=== PATIENT | female | born 1965 | race Caucasian/White ===

== ENCOUNTER 2019-10-26 13:58 | Observation (INO) | payer OTHER, SELFPAY ==
[2019-10-26] VITALS (8 sets, daily range): BP systolic 111–147; BP diastolic 46–71; PULSE 62–83; RESP 16–20; TEMP 36.4–37.4; O2SAT 97–99; BMI 31.8
--- NOTE | ~2019-10-26 | XR_ITS ---
EXAMINATION: XR chest 2V DATE: 10/26/2019 15:26 INDICATION: Chest pain. Cough. TECHNIQUE: Frontal and lateral views of the chest were obtained. COMPARISON: Chest 2 views 06/20/2017 FINDINGS: The chest demonstrates clear lungs without pneumonia, pleural effusion, or pneumothorax. Th e heart size is normal. There are prominent paracardial fat pads. There are changes of anterior fusio n procedure in cervical spine. IMPRESSION: 1. No acute cardiopulmonary disease. Reviewed, dictated and finalized at location A. ISION ASSEMBLER BENCH
--- NOTE | 2019-10-26 14:07 | ECG_ITS ---
Measurements Intervals [place] Rate: 71 P: 58 CO: 236 QRS: 12 QRSD: 92 T: 67 QT: 387 QTc: 423 Interpretive Statements SINUS RHYTHM WITH FIRST DEGREE AV BLOCK POSSIBLE LEFT ATRIAL ENLARGEMENT LOW QRS VOLTAGE IN PRECORDIAL LEADS BORDERLINE ST-T WAVE ABNORMALITY- LATERAL LEADS BASELINE WANDER- I, III, AVL, AVF ABNORMAL ECG Electronically Signed On 10-26-2019 14:47:00 LOADING MACHINE OPERATOR HELPER by Ronny Lou D.O.
[2019-10-26 14:45] LABS: Basophils Percent Auto 0.3 % (0.2-1.2); Eosinophils Absolute Auto 0.1 K/mm3 (0-0.3); Eosinophils Percent Auto 1.2 % (0-4.4); Hematocrit 49.2 % (37.0-47.0); Hemoglobin 15.9 g/dL (12.0-15.0); Immature Granulocyte Absolute 0.03 K/mm3 (0.00-0.031); Immature Granulocyte Percent A 0.3 % (0-0.5); Lymphocytes Absolute Auto 2.65 K/mm3 (0.9-3.2); Lymphocytes Percent Auto 28.3 % (18.3-44.2); Mean Corpuscular HGB Conc 32.3 g/dl (32-36); Mean Corpuscular Hemoglobin 29.6 pg (26-34); Mean Corpuscular Volume 91.4 fl (80-100); Mean Platelet Volume 11.4 fl (7.4-10.4); Monocytes Absolute Auto 0.5 K/mm3 (0.1-0.6); Monocytes Percent Auto 5.5 % (2.6-8.5); Neutrophils Percent Auto 64.4 % (45.5-73.1); Platelet Count Result 257 k/mm3 (150-375); Red Blood Count 5.38 M/mm3 (4.2-5.4); White Blood Count 9.4 K/mm3 (4.5-10.0)
[2019-10-26 14:57] LABS: Blood Urea Nitrogen 23 mg/dL (7-17); Calcium 9.4 mg/dL (8.4-10.2); Carbon Dioxide 26 mmol/L (22-30); Chloride 101 mmol/L (98-107); Estimated CRCL calculation 78 ml/min; Estimated Glomerular Filt Rate > 60; Glucose 103 mg/dL (65-105); Potassium 3.7 mmol/L (3.4-5.0); Sodium 140 mmol/L (137-145)
[2019-10-26 15:00] LABS: Prothrombin Time 12.6 Seconds (11.1-14.7)
[2019-10-26 15:10] LABS: Troponin I 0.039 ng/mL (0.000-0.034)
--- NOTE | 2019-10-26 15:54 | ED.CHESTPAIN ---
HPI - Chest Pain General Chief Complaint: Chest Pain Stated Complaint: Chest tightness Time Seen by Provider: 10/26/19 15:46 Source: patient and RN notes reviewed Mode of arrival: ambulatory Limitations: no limitations History of Present Illness HPI narrative: Pt is a 54 y/o female who presents to the ED with c/o central chest pain starting yesterday morning. She notes that she developed what she believed to be indigestion shortly after eating breakfast yesterday morning. Pt describes her pain as a tightness. She notes that she tried taking TUMS, but denies having any relief of her symptoms. Pt states that belching seems to alleviate her pain. She notes that she has developed tingling in her lt upper arm since her pain began. Pt also reports a recent cough and chest congestion, but denies any ABD pain, SOB, or diaphoresis. She denies any significant cardiac PMHx. MD complaint: chest pain Onset (ago): day(s) (1) Onset: after eating Pain location: other (central chest) Pain radiation: none Quality: tightness Relieving factors: other (belching) Associated symptoms: cough and other (tingling in lt upper arm; chest congestion) Related Data Home Medications Medication Instructions Recorded Confirmed No Home Medications 10/26/19 10/26/19 Allergies Allergy/AdvReac Type Severity Reaction Status Date / Time No Known Allergies Allergy Verified 10/26/19 17:30 Review of Systems Review of Systems: Narrative: CONSTITUTIONAL: Denies fever, chills, or sweats. CARDIOVASCULAR: Reports central chest pain. Denies palpitations or edema. RESPIRATORY: Reports cough and chest congestion. Denies dyspnea. GASTROINTESTINAL: Denies abdominal pain, nausea, vomiting, or diarrhea. NEUROLOGIC: Denies headache, numbness, or weakness. Reports tingling in lt upper arm. All systems reviewed & are unremarkable except as noted in HPI and below PMFSH Past Medical History Medical History Healthy female adult Surgical History Surgical History History of hysterectomy Hx of spinal surgery Social History Social History Smoking packs per day: 0.5 Smoking cigarettes per day: 10.0 Smoking status: Current every day smoker Comments PCP is Dr. Laughlin. Exam Narrative: Exam Narrative: GENERAL: Well-appearing, well-nourished, and in no acute distress. HEAD: Normocephalic, atraumatic. EYES: PERRLA and EOMI. ENT: Nares clear, no rhinorrhea or epistaxis. Mucous membranes moist. NECK: Supple. CHEST: Inspiratory wheezing on rt lung. No respiratory distress. HEART: Regular rate and rhythm. No murmur heard. Normal peripheral pulses. ABDOMEN: Soft, nontender, nondistended, normal active bowel sounds. EXTREMITIES: Normal range of motion. No edema. SKIN: Warm, dry, no rash. NEURO: No focal deficits. Alert and oriented. Course Course Emergency Course: Patient presents with history that may be consistent with unstable angina, given symptoms are not worsened with exacerbation, seem to come and go intermittently. Patient without chest pain currently. EKG without acute ischemic changes, there are some nonspecific changes. Her heart score is 6. Patient with elevated troponin, will give Lovenox, patient without other medical history, takes no other medications, cardiology accepted her to their service. Patient was admitted to the IMCU in stable condition will be kept n.p.o. at midnight. Consultations Consultation #1: Discussed case with ADON to lithographic plate maker, Jo Ann Phoenix. Accepts to IMU under cardiology. Date: 10/26/19 Time: 16:11 Vital Signs Vital signs: Vital Signs Temperature 37.4 C 10/26/19 14:22 Pulse Rate 83 10/26/19 14:22 Respiratory Rate 16 10/26/19 14:22 Blood Pressure 147/64 H 10/26/19 14:22 Pulse Oximetry 99 10/26/19 14:22 Temperature 37.4 C 10/26/19 14:22 Pulse Rate 83 10/26/19 14:22
[2019-10-26] MEDS: ASPIRIN 81 MG CHEWABLE TABLET 324 MG PO (17:06)
[2019-10-26] MEDS: BELLADONNA ALK/PHENOB ELIX 10 ML, MAG HYDROX/ALUMINUM HYD/SIMETH 30 ML, LIDOCAINE HCL 2... PO (17:07)
[2019-10-26] MEDS: ENOXAPARIN 80 MG/0.8 ML SYRINGE SUB-Q (17:08)
[2019-10-26 17:48] LABS: Troponin I 0.037 ng/mL (0.000-0.034)
[2019-10-26] MEDS: FAMOTIDINE 20 MG/2 ML VIAL IV PUSH (20:23)
[2019-10-26 20:51] LABS: Troponin I 0.039 ng/mL (0.000-0.034)
[2019-10-26] MEDS: ACETAMINOPHEN 325 MG TABLET 650 MG PO (22:00)
[2019-10-27] VITALS (11 sets, daily range): BP systolic 114–131; BP diastolic 55–67; PULSE 48–72; RESP 18–20; TEMP 35.6–36.6; O2SAT 96–98
[2019-10-27] MEDS: FAMOTIDINE 20 MG/2 ML VIAL IV PUSH (08:02)
--- NOTE | 2019-10-27 08:11 | ECG_ITS ---
Measurements Intervals [place] Rate: 54 P: 54 NC: 231 QRS: 47 QRSD: 100 T: 62 QT: 442 QTc: 420 Interpretive Statements SINUS BRADYCARDIA WITH FIRST DEGREE AV BLOCK ATRIAL PREMATURE COMPLEXES LOW QRS VOLTAGE IN PRECORDIAL LEADS BASELINE ARTIFACT- V4-V5 ABNORMAL ECG Electronically Signed On 10-27-2019 9:54:07 CO FOUNDER AND CHAIRMAN by Ronny Lou D.O.
[2019-10-27] MEDS: ASPIRIN 81 MG CHEWABLE TABLET PO (08:12)
--- NOTE | 2019-10-27 12:10 | PM.IMHP ---
H&P: HPI History of Present Illness Chief complaint: Unstable angina Narrative: Afia Hutchison is a 54 year old female admitted to our service after being seen in the emergency room last evening with complaints of chest pain. The patient was given the diagnosis of unstable angina upon admission but they history she is providing to me at this time seems highly atypical of myocardial ischemia. She states that her symptoms began on Wednesday of this past week and she states that in the entire day Wednesday and Wednesday she was bothered by retrosternal burning pain that she attributed to significant dyspepsia. She has had occasional heartburn in the past and she felt like she had this for a couple of days continuously. She has never had dyspepsia for long. After couple of days that she started to have some intermittent symptoms with pain in the right lateral side of her chest and then occasional aching pain in the left shoulder. She because of the symptoms she became more concerned about her cardiac status and came into the emergency room. Her ECGs do not show any evidence of acute myocardial injury/ischemia. She has had 3 troponin levels done that are barely out of normal range but are all flat at 0.03. In this setting I am seeing her in consultation today. She does not exercise regularly but the is a normally active person who has never noticed exertional chest pain shortness of breath orthopnea PND edema palpitations or syncope. She has never had any previous cardiac problems and really has a paucity of general medical problems as well. She denies any history of hypertension diabetes or dyslipidemia. She unfortunately is a chronic cigarette smoker. She has had a previous hysterectomy. Review of Systems Constitutional: Constitutional: Reports no additional constitutional complaints Eyes: Eyes: Reports no additional eye complaints ENT: Reports system reviewed and no additional complaints, except as documented Cardiovascular: Cardiovascular: Reports as per HPI Respiratory: Respiratory: Reports no additional respiratory complaints Gastrointestinal: Gastrointestinal: Reports no additional gastrointestinal complaints Musculoskeletal: Musculoskeletal: Reports myalgias Neurologic: Reports system reviewed and no additional complaints, except as documented Psychiatric: Psychiatric: Reports no additional psychiatric complaints [facility] Past Medical History Medical History Healthy female adult Surgical History Surgical History History of hysterectomy Hx of spinal surgery Family History Family History (Updated 10/26/19 @ 18:21 by Cindy Deras RN) Father Diabetes mellitus Throat cancer Heart disease Social History Social History Smoking packs per day: 0.5 Smoking cigarettes per day: 10.0 Smoking status: Current every day smoker Tobacco type: cigarettes Alcohol intake: current Drinks per week: 4 Substance use: never Substance use type: does not use Gender identity (if verbalized by the patient): Female Spiritual care concerns: No Agree to blood products: Yes Meds Home Medications and Allergies Home Medications Medication Instructions Recorded Confirmed Type No Home Medications 10/26/19 10/26/19 History Allergies Allergy/AdvReac Type Severity Reaction Status Date / Time No Known Allergies Allergy Verified 10/26/19 17:30 Vital Signs Vital Signs - 24 hr 10/26/19 14:22 10/26/19 17:48 10/26/19 18:31 Temperature 37.4 C 36.4 C L Pulse Rate 83 67 62 Respiratory Rate 16 16 20 Blood Pressure 147/64 H 131/69 145/71 H Pulse Oximetry 99 97 97 10/26/19 18:38 10/26/19 19:30 10/26/19 20:00 Temperature 36.6 C Pulse Rate 78 67 66 Respiratory Rate 18 Blood Pressure 126/46 L Pulse Oximetry 97 10/26/19 22:00 10/26/19 23:45
--- NOTE | 2019-10-27 12:51 | EST_ITS ---
Patient Info Name: Afia Hutchison Age: 54 years : 1965 Gender: Female Ht: 64 in Wt: 180 lbs BSA: 1.95 m2 HR: 60 bpm BP: 149 / 81 mmHg Technical Quality: Good Exam Date: 10/27/2019 1:10 PM Exam Location: [facility] Patient Status: Inpatient Admit Date: 10/26/2019 Staff Ordering Physician: Giovanny Phoenix APRN Asbestos Wire Finisher: Cindi Reyna RDCS Attending Provider: GIOVANNY ORONA Referring Physician: lAban ASH; Exercise Technologist: Anna Lopez RDCS Nurse: Giovanny Phoenix ANP, [facility]- Exam Type: CA stress echo Study Info Indications R07.89 - Other chest pain Treadmill exercise stress echocardiogram is performed. Summary 1. Normal sinus rhythm. 2. Low QRS voltage. 3. No abnormal ST/T wave changes with exercise. 4. Normal left venticular systolic function with no regional wall motion abnormalities noted at rest. 5. All segments become normally hyperdynamic after exercise. Stress Echo Findings Left Ventricle Normal left venticular systolic function with no regional wall motion abnormalities noted at rest. All segments become normally hyperdynamic after exercise. Protocol: Dave Stress ECG Details Stage: REST Duration (min): 14 min : 16 sec Speed (mph): 0.0 Grade (%): 0 HR (bpm): 60 SBP (mmHg): 149 DBP (mmHg): 81 METS: --- Stage: REST Duration (min): 24 min : 39 sec Speed (mph): 0.0 Grade (%): 0 HR (bpm): 65 SBP (mmHg): 149 DBP (mmHg): 81 METS: --- Stage: STAGE 1 Duration (min): 1 min : 0 sec Speed (mph): 1.7 Grade (%): 10 HR (bpm): 92 SBP (mmHg): 149 DBP (mmHg): 81 METS: --- Stage: STAGE 1 Duration (min): 2 min : 0 sec Speed (mph): 1.7 Grade (%): 10 HR (bpm): 99 SBP (mmHg): 149 DBP (mmHg): 81 METS: --- Stage: STAGE 1 Duration (min): 3 min : 0 sec Speed (mph): 1.7 Grade (%): 10 HR (bpm): 106 SBP (mmHg): 170 DBP (mmHg): 84 METS: --- Stage: STAGE 2 Duration (min): 1 min : 0 sec Speed (mph): 2.5 Grade (%): 12 HR (bpm): 111 SBP (mmHg): 170 DBP (mmHg): 84 METS: --- Stage: STAGE 2 Duration (min): 2 min : 0 sec Speed (mph): 2.5 Grade (%): 12 HR (bpm): 120 SBP (mmHg): 187 DBP (mmHg): 85 METS: --- Stage: STAGE 2 Duration (min): 3 min : 0 sec Speed (mph): 2.5 Grade (%): 12 HR (bpm): 124 SBP (mmHg): 187 DBP (mmHg): 85 METS: --- Stage: STAGE 3 Duration (min): 1 min : 0 sec Speed (mph): 3.4 Grade (%): 14 HR (bpm): 131 SBP (mmHg): 202 DBP (mmHg): 89 METS: --- Stage: STAGE 3 Duration (min): 1 min : 55 sec Speed (mph): 3.4 Grade (%): 14 HR (bpm): 140 SBP (mmHg): 202 DBP (mmHg): 89 METS: --- Stage: RECOVERY Duration (min): 0 min : 4 sec Speed (mph): 0.0 Grade (%): 0 HR (bpm): 140 SBP (mmHg): 202 DBP (mmHg): 89 METS: ---
--- NOTE | 2019-11-06 10:32 | PM.DS ---
DS: Diagnosis Admitting Diagnosis Admitting Diagnosis: Chest pain, unspecified Discharge Diagnosis (1) Chest pain: Code(s): R07.9 - Chest pain, unspecified Status: Acute Assessment and Plan: DATE OF DISCHARGE 10/27/2019 Atypical. Troponin not consistent with acute coronary syndrome. No ischemic EKG changes. Stress test negative for ischemia. Smoking cessation encouraged. Follow-up with primary care provider. DS: Summary Hospital Course Reason for hospitalization: Chest pain Hospital Course: 54-year-old female admitted to [facility] for further evaluation of chest discomfort. She reported a retrosternal burning for the entire day on Wednesday and Wednesday prior to admission. She then had intermittent right lateral chest discomfort associated with aching in the left shoulder. EKG had no ischemic changes. Troponins were 0.039, 0.037 and 0.039, not consistent with acute coronary syndrome. She underwent a stress echocardiogram walking 5 minutes and 2 seconds at 85% maximal predicted heart rate. There were no abnormal EKG changes. No echocardiographic evidence of ischemia. She was discharged home in stable and pain-free condition. She was encouraged to stop smoking completely. She was to follow-up with primary care provider. (On assessment by Dr. Rivers he did not feel that this was unstable angina) Time spent discussing smoking cessation with patient: 3 to 10 minutes Status at Discharge Functional status at discharge: independent ambulation Overall status at discharge: patient is back to baseline Time Spent with Patient Time attestation: Total time spent providing and/or coordinating discharge services: 20 minutes Time spent: Less than 30 minutes Exam Const: General: comfortable and no acute distress HENMT: Mouth: Yes moist mucous membranes Eyes: Sclera: sclerae normal Pupils: Equal, round and reactive pupils present Neck: Neck: supple and no JVD Resp: Effort & Inspection: normal respiratory effort Auscultation: clear to auscultation bilaterally Cardio: Jugular venous distension: no JVD Rate: regular rate Rhythm: regular rhythm Heart sounds: no murmurs GI: Auscultation: normal bowel sounds Skin: General skin exam: normal color Neuro: Cranial nerves: Yes Equal, round and reactive pupils present Cognition (Neuro): normal cognition Extrem: General: normal to inspection DS: Data Data Completed and Pending Completed studies during hospitalization: Stress echocardiogram 10/27/2019 which was negative for ischemia. Discharge Plan Discharge Attending physician on discharge: Damian Rivers Discharging Clinician: Damian Rivers Anticipated Discharge Date/Time: 10/27/19 15:44 Patient Disposition: Home, Self-Care Activity: as tolerated Diet: heart healthy Discharge Instructions: ACTIVITY: Activity as tolerated. Attempt to stop smoking completely. FOLLOW-UP: With primary care physician 1-2 weeks. Patient Instructions: How to Stop Smoking (DC) Stand Alone Forms: General Discharge Information Follow-up/Referrals: UNKNOWN,DOCTOR [Primary Care Provider] - (Follow-up with primary care provider 1-2 weeks.) Discharge Medications: No Action No Home Medications RF: 0 Date of admission: 10/26/19 16:12 Primary Care Provider: UNKNOWN,DOCTOR Admitting Provider: Neno Hdez Discharge Date/Time: 10/27/19 16:40 Attending physician on admission: Neno Hdez Condition: Stable
== END 2019-10-27 16:40 | disposition home or self-care (01) ==
LOC: ANHED 16:19 → ANHIMU 16:24
PROVIDERS: Admitting Provider Internal Medicine Cardiovascular Disease; Emergency Provider Emergency Medicine; Visit Provider Internal Medicine Cardiovascular Disease
DX: R07.89 Other chest pain (principal); F17.210 Nicotine dependence, cigarettes, uncomplicated
CPT/HCPCS: 36415; 71046; 80048; 84484; 85025; 85610; 85730; 93005; 93351; 96372; 96374; 99285; A9270; G0378; J1650

== ENCOUNTER 2020-11-26 15:03 | Outpatient (CLI) | payer OTHER, SELFPAY | END 2020-11-26 15:04 | disposition home or self-care (01) | LOC: ANHCOVIDVC 15:03 | PROVIDERS: PCP Emergency Medicine | DX: Z23 Encounter for immunization (principal) | CPT/HCPCS: 0001A; 91300 ==

== ENCOUNTER 2020-12-17 14:55 | Outpatient (CLI) | payer OTHER, SELFPAY | END 2020-12-17 14:56 | disposition home or self-care (01) | LOC: ANHCOVIDVC 14:56 | PROVIDERS: PCP Emergency Medicine | DX: Z23 Encounter for immunization (principal) | CPT/HCPCS: 0002A; 91300 ==

== ENCOUNTER → 2021-11-19 08:36 | Outpatient (CLI) | payer OTHER, SELFPAY ==
--- NOTE | ~2021-11-19 | CT_ITS ---
EXAMINATION: CT soft tissue neck w con DATE: 11/19/2021 09:10 INDICATION: Neck mass. TECHNIQUE: Computed tomography (CT) of the neck was performed with 75 mL Omnipaque-350 intravenous co ntrast. Automated exposure control and iterative reconstruction technique were employed. The dose-jennifer gth product was 450.78 mGy-cm. COMPARISON: None FINDINGS: There are no pathologically enlarged lymph nodes. There is 0% stenosis of the proximal inte rnal carotid arteries relative to normal distal artery lumen diameters. In the left lower face, there is an 8 mm subcutaneous cyst, likely a sebaceous cyst. There is mild mucosal thickening in the ethmo id sinuses. The mastoid air cells are normal. There are changes of anterior fusion procedure from C4 to C6. IMPRESSION: 1. 8 mm subcutaneous cyst in left lower face, likely a sebaceous cyst. Reviewed, dictated and finalized at location A. TRIMMER
--- NOTE | ~2021-11-19 | XR_ITS ---
EXAMINATION: XR chest 2V DATE: 11/19/2021 09:10 INDICATION: Cough and left upper chest pain TECHNIQUE: PA and lateral views of the chest are obtained. COMPARISON: 10/26/2019 FINDINGS: The lungs are free of acute opacities. There is no pleural effusion or pneumothorax. The ca rdiomediastinal silhouette is normal. There is mild thoracic spondylosis. There are changes of anteri or fusion in the lower cervical spine. IMPRESSION: 1. No acute cardiopulmonary abnormality. Reviewed, dictated and finalized at location B. DOOR REPAIRER
== END ==
DX: R22.1 Localized swelling, mass and lump, neck (principal); R05.9 Cough, unspecified
CPT/HCPCS: 70491; 71046; Q9967

== ENCOUNTER 2021-12-09 07:47 | Outpatient (CLI) | payer OTHER, SELFPAY ==
--- NOTE | ~2021-12-09 | MM_ITS ---
EXAMINATION: MM screening miguel BI w josue HISTORY: Screening mammogram TECHNIQUE: Craniocaudal and mediolateral oblique 3-D tomosynthesis images were obtained and synthetic 2-D images were generated. CAD analysis was submitted and interpreted. COMPARISON: 11/29/2015, 11/16/2015 BREAST PARENCHYMAL COMPOSITION: There are scattered areas of fibroglandular density. FINDINGS: Bilateral breast masses are without significant change. There are stable benign the breasts . There is no suspicious mass, calcification, or architectural distortion to suggest malignancy in ei ther breast. There has been no suspicious interval change. IMPRESSION: 1. No mammographic evidence of malignancy. 2. Recommend routine screening mammography in one year. BI-RADS Category 2: Benign finding(s). Reviewed, dictated and finalized at location A.
--- NOTE | ~2021-12-09 | DEXA_ITS ---
Bone Density Report Name: JONAS CHEUNG Age: 56 Sex: Female Ethnicity: White Date of : 1965 Indication: postmenopausal; height loss; hysterectomy; Referring Provider: LONDON MILES Study: Bone densitometry was performed. Exam Date: December 09, 2021 Accession number: [id number] Bone Density: Region BMD T-score Z-score Classification AP Spine (L1-L4) 1.017 -0.3 1.0 Normal Femoral Neck (Left) 0.694 -1.4 -0.2 Osteopenia Total Hip (Left) 0.866 -0.6 0.2 Normal Total Hip Bilateral Avg 0.862 -0.7 0.2 Normal Femoral Neck (Right) 0.700 -1.3 -0.1 Osteopenia Total Hip (Right) 0.856 -0.7 0.1 Normal World Health Organization criteria for BMD impression classify patients as: Normal (T-score at or above -1.0), Osteopenia (T-score between -1.0 and -2.5), or Osteoporosis (T-score at or below -2.5). 10-year Fracture Risk(1): Major Osteoporotic Fracture 7.0% Hip Fracture 0.9% Reported Risk Factors: [place] (), Neck BMD=0.694, BMI=32.4, smoking (1) FRAX(R) Version 3.08. Fracture probability calculated for an untreated patient. Fracture probability may be lower if the patient has received treatment. Clinical Information Provided by Patient: Smokes Has the following medical conditions: Hysterectomy Patient maximum height was 64 Menopause Age: 38 No regular weight bearing exercise Onset of menses at age 10 Number of children 2 Impression: The patient has low bone mass, based on the Left Femoral Neck T-score. The patient has an estimated ten-year risk of hip fracture of 0.9% and an estimated ten-year risk of major fracture of 7%, based on the WHO FRAX algorithm. The patient has risk factors, including: smoking. Discussion: BONE DENSITY IS LOW AT ONE OR MORE SKELETAL SITES. This patient's lowest T-score is low at one or more skeletal sites. It meets the World Health Organization's (WHO) criteria for ?low bone mass? (T-score between -1.0 and -2.5). The patient's 10-year risk of fracture as calculated by FRAX is less than the threshold where pharmacological therapy is recommended by the National Osteoporosis Foundation (NOF). However, all treatment decisions require clinical judgment and consideration of individual patient factors, including patient preferences, comorbidities, previous drug use, risk factors not captured in the FRAX model (e.g., frailty, falls, vitamin D deficiency, increased bone turnover, interval significant decline in bone density) and possible under or overestimation of fracture risk by FRAX. The patient should follow a healthful lifestyle (good nutrition with adequate calcium and vitamin D, and appropriate weight-bearing exercise). Follow-Up: Consider repeating this study in 2 to 3 years to reassess this patient's status, or sooner if there is some new clinical indication. Reporte
== END 2021-12-09 07:48 | disposition home or self-care (01) ==
DX: Z12.31 Encounter for screening mammogram for malignant neoplasm of breast (principal); Z78.0 Asymptomatic menopausal state; M85.89 Other specified disorders of bone density and structure, multiple sites
CPT/HCPCS: 77063; 77067; 77080

== ENCOUNTER 2023-08-30 02:49 | Emergency (ER) | payer SELFPAY ==
--- NOTE | ~2023-08-30 | XR_ITS ---
Clinical Indication: Chest pain PA and lateral views of the chest: Comparison: 11/19/2021 Findings: The lungs are clear, without evidence of focal consolidation or pleural effusion. Cardiome diastinal silhouette is within normal limits. Bones and soft tissues are unremarkable. Impression: Normal chest. Reviewed, dictated and finalized at [facility]. [employer]TING [employer]INE [employer] Impression: Normal chest.
--- NOTE | 2023-08-30 02:50 | ECG_ITS ---
Measurements Intervals [place] Rate: 78 P: 78 ID: [id number] QRS: 50 QRSD: 93 T: 74 QT: 375 QTc: 428 Interpretive Statements SINUS RHYTHM WITH SINUS ARRHYTHMIA WITH FIRST DEGREE AV BLOCK LOW-VOLTAGE QRS IN PRECORDIAL LEADS ABNORMAL ECG COMPARED TO ECG 10/27/2019 09:30:17 SINUS RHYTHM NOW PRESENT SINUS ARRHYTHMIA NOW PRESENT Electronically Signed On 08-30-2023 17:11:34 ZIG ZAG SPRING MACHINE OPERATOR by Neno Hdez M.D.
[2023-08-30 02:55] VITALS: BP 149/84; PULSE 78; RESP 15; TEMP 36.9; O2SAT 99
[2023-08-30 03:00] VITALS: O2SAT 96
[2023-08-30] MEDS: ASPIRIN 81 MG CHEWABLE TABLET 324 MG PO (03:06)
[2023-08-30 03:08] LABS: Basophils Percent Auto 0.4 % (0.2-1.2); Eosinophils Absolute Auto 0.1 K/mm3 (0-0.3); Eosinophils Percent Auto 1.2 % (0-4.4); Hematocrit 48.6 % (37.0-47.0); Hemoglobin 15.9 g/dL (12.0-15.0); Immature Granulocyte Absolute 0.05 K/mm3 (0.00-0.031); Immature Granulocyte Percent A 0.5 % (0-0.5); Lymphocytes Absolute Auto 2.06 K/mm3 (0.9-3.2); Lymphocytes Percent Auto 22.6 % (18.3-44.2); Mean Corpuscular HGB Conc 32.7 g/dl (32-36); Mean Corpuscular Hemoglobin 30.7 pg (26-34); Mean Corpuscular Volume 93.8 fl (80-100); Mean Platelet Volume 10.7 fl (7.4-10.4); Monocytes Absolute Auto 0.8 K/mm3 (0.1-0.6); Monocytes Percent Auto 9.1 % (2.6-8.5); Neutrophils Percent Auto 66.2 % (45.5-73.1); Platelet Count Result 268 k/mm3 (150-375); Red Blood Count 5.18 M/mm3 (4.2-5.4); Red Cell Distribution Width 13.3 % (11.5-14.5); White Blood Count 9.1 K/mm3 (4.5-10.0)
[2023-08-30 03:23] LABS: Alanine Aminotransferase 37 U/L (6-35); Albumin Level 4.6 g/dL (3.5-5.1); Alkaline Phosphatase 85 U/L (38-126); Anion Gap 10 mmol/L (8-16); Aspartate Amino Transferase 33 U/L (14-36); Bilirubin,Total 0.7 mg/dL (0.2-1.3); Blood Urea Nitrogen 17 mg/dL (7-17); Calcium 9.5 mg/dL (8.4-10.2); Carbon Dioxide 25 mmol/L (22-30); Chloride 106 mmol/L (98-107); Estimated CRCL calculation 83 ml/min; Estimated Glomerular Filt Rate > 60; Glucose 95 mg/dL (65-110); INR 0.9; Lipase 58 U/L (23-300); Partial Thromboplastin Time 29.5 SECONDS (22.3-36.8); Prothrombin Time 12.9 Seconds (11.1-14.7); Sodium 141 mmol/L (137-145)
[2023-08-30 03:35] LABS: Troponin I 0.015 ng/mL (0.000-0.034)
--- NOTE | 2023-08-30 03:47 | ED.GENADULT ---
HPI - General Adult General Chief complaint: Chest Pain Stated complaint: CP, hard to breathe Time Seen by Provider: 08/30/23 03:12 History of Present Illness HPI narrative: patient is 58-year-old female who presents the emergency department with chief complaint of left-sided chest pain. Patient reports it has been going on for several days after she lifted some large cans at work the patient states that it feels similar to whenever she had pleurisy in the past reports the pain is sharp reports hurts whenever she takes a deep breath. Related Data Allergies Allergy/AdvReac Type Severity Reaction Status Date / Time No Known Allergies Allergy Verified 08/30/23 03:01 Review of Systems Review of Systems: A 10 system review of systems was completed on the patient and is negative except for what is stated in the HPI. Nursing and ancillary documentation was reviewed. [facility] Past Medical History Medical History Healthy female adult Surgical History Surgical History History of hysterectomy Hx of spinal surgery Family History Family History Father Diabetes mellitus Throat cancer Heart disease Social History Social History Smoking packs per day: 0.5 Smoking cigarettes per day: 10.0 Smoking status: Current every day smoker Tobacco type: cigarettes Alcohol intake: current Drinks per week: 4 Substance use: never Substance use type: does not use Gender identity (if verbalized by the patient): Female Spiritual care concerns: No Agree to blood products: Yes Exam Narrative: GENERAL: Well-appearing, well-nourished, and in no acute distress. HEAD: Normocephalic, atraumatic. EYES: PERRLA and EOMI. ENT: Nares clear, no rhinorrhea or epistaxis. Mucous membranes moist. NECK: Supple. CHEST: Clear to auscultation. No respiratory distress. HEART: Regular rate and rhythm. No murmur heard. Normal peripheral pulses. ABDOMEN: Soft, nontender, nondistended, normal active bowel sounds. EXTREMITIES: Normal range of motion. No edema. SKIN: Warm, dry, no rash. NEURO: No focal deficits. Alert and oriented x3. PSYCH: Normal mood and affect. Course Vital Signs Vital signs: Vital Signs Temperature 36.9 C 08/30/23 02:55 Pulse Rate 78 08/30/23 02:55 Respiratory Rate 15 08/30/23 02:55 Blood Pressure 149/84 H 08/30/23 02:55 Pulse Oximetry 99 08/30/23 02:55 Oxygen Delivery Room Air 08/30/23 02:55 Temperature 36.9 C 08/30/23 02:55 Pulse Rate 78 08/30/23 05:48 Respiratory Rate 15 08/30/23 05:48 Blood Pressure 131/73 08/30/23 05:48 Pulse Oximetry 100 08/30/23 05:48 Oxygen Delivery Room Air 08/30/23 03:00 Medical Decision Making MDM Narrative Medical decision making narrative: differential diagnosis includes chest wall pain, ACS, PE, musculoskeletal pain EKG showed no acute ischemic changes troponin was negative the D-dimer was negative patient's exam is consistent with chest wall pain. The patient will be discharged home to follow-up with her primary care provider as she is a heart score of 2 Vital Signs Vital Signs: Vital Signs Temperature 36.9 C 08/30/23 02:55 Pulse Rate 78 08/30/23 02:55 Respiratory Rate 15 08/30/23 02:55 Blood Pressure 149/84 H 08/30/23 02:55 Pulse Oximetry 99 08/30/23 02:55 Oxygen Delivery Room Air 08/30/23 02:55 Temperature 36.9 C 08/30/23 02:55 Pulse Rate 78 08/30/23 05:48 Respiratory Rate 15 08/30/23 05:48 Blood Pressure 131/73 08/30/23 05:48 Pulse Oximetry 100 08/30/23 05:48 Oxygen Delivery Room Air 08/30/23 03:00 Lab Data 08/30/23 03:02 08/30/23 03:02 Labs: Lab Results 08/13
[2023-08-30 03:50] LABS: Influenza A QL RT-PCR Negative (Negative); Influenza B QL RT-PCR Negative (Negative); RSV RNA, RT-PCR Negative (Negative); SARS-CoV-2 RNA PCR Negative (Negative)
[2023-08-30] MEDS: MORPHINE SULFATE (*CRX) 4 MG/ML INJ IV PUSH ×2 (04:22→05:58)
[2023-08-30 04:23] VITALS: BP 150/69; PULSE 71; RESP 15; O2SAT 97
[2023-08-30 04:32] LABS: NT Pro B Type Natriuretic Pept 45 pg/mL (19.9-100)
[2023-08-30 04:35] LABS: D Dimer 0.34 ug/mL (<0.48)
[2023-08-30 05:48] VITALS: BP 131/73; PULSE 78; RESP 15; O2SAT 100
--- NOTE | 2023-08-30 05:56 | ECG_ITS ---
Measurements Intervals [place] Rate: 62 P: 64 ID: [id number] QRS: 28 QRSD: 94 T: 81 QT: 404 QTc: 412 Interpretive Statements SINUS RHYTHM WITH SINUS ARRHYTHMIA LOW QRS VOLTAGE IN PRECORDIAL LEADS [QRS DEFLECTION < 1.0 mV IN CHEST LEADS] CANNOT RULE OUT iNFERIOR MYOCARDIAL INFARCTION , PROBABLY OLD [40+ ms Q WAVE AND/OR ST/T ABNORMALITY IN II/aVF] ABNORMAL ECG COMPARED TO ECG 08/30/2023 02:58:50 CANNOT RULE OUT mYOCARDIAL INFARCT Electronically Signed On 08-30-2023 17:12:34 RN ENT by Neno Hdez M.D.
[2023-08-30 06:37] LABS: Troponin I 0.014 ng/mL (0.000-0.034)
[2023-08-30 06:59] VITALS: BP 131/73; PULSE 75; RESP 19; O2SAT 95
== END 2023-08-30 07:01 | disposition home or self-care (01) ==
PROVIDERS: Emergency Provider Emergency Medicine
DX: R07.89 Other chest pain (principal); F17.210 Nicotine dependence, cigarettes, uncomplicated; Z20.822 Contact with and (suspected) exposure to COVID-19
CPT/HCPCS: 36415; 71046; 80053; 83690; 83880; 84484; 85025; 85380; 85610; 85730; 87637; 93005; 96374; 96376; 99284; A9270; J2270